=== PATIENT | male | born 1975 | race Asian ===

== ENCOUNTER 2024-10-21 07:31 | Emergency (ER) | payer OTHER ==
[~2024-10-21] VITALS: Ht 157.5 cm; Wt 60.3 kg
--- NOTE | 2024-10-21 07:36 | Physician Documentation ---
History of Present Illness ~ General Stated Complaint: BLURRY VISION VOMITING AFIB Time Seen by MD: 07:35 Source: patient Mode of Arrival: POV Exam Limitations: no limitations History of Present Illness Initial Comments Chief Complaint: Nausea and vomiting Caveat: None Independent Historians: Significant other History of Present Illness: Patient is a 49-year-old man comes in complaining of nausea and vomiting that began Thursday. That is four days ago. Patient denies any abdominal pain. Patient denies any diarrhea. Patient denies any fever body aches. Patient also developed a headache Thursday associated with the nausea and vomiting. Headache is 8/10 and is in the frontal top of his head. Patient denies any neck pain. Patient denies any other associated symptoms. Patient has intermittent chest pain that is not unusual for him he states secondary to his AFib. Patient has who has intermittent shortness of breath. Review of systems: All systems were reviewed and are negative except for what is indicated in the history of present illness. Past Medical History: Atrial fibrillation, hypertension Past Surgical History: Cardiac ablation March 2024 in [place] Social History: Alcohol use, two glasses of wine daily, no tobacco use, no other drug use Medications: Reviewed as documented Nursing Notes Allergies: Reviewed as documented in Nursing Notes Medication Reconciliation Allergies: Coded Allergies: acetaminophen (Unverified Allergy, Mild, hives, 10/21/24) hydrocodone (Unverified Allergy, Mild, hives, 10/21/24) Scheduled Apixaban (Eliquis), 1 TAB PO BID, (Reported) Atorvastatin Calcium (Atorvastatin Calcium), 1 TAB PO DAILY, (Reported) Diltiazem HCl (Diltiazem 24Hr Cd), 1 CAP PO DAILY, (Reported) Losartan Potassium (Losartan Potassium), 1 TAB PO DAILY, (Reported) Metoprolol Succinate (Metoprolol Succinate), 1 TAB PO DAILY, (Reported) Review of Systems All Other Systems at this time: Reviewed and Negative ROS Patient denies any other acute symptoms other than above. All other systems are negative Physical Exam Physical Exam Pulse Oximetry Reflects: adequate oxygenation Physical Exam General Appearance: MILD DISTRESS HEENT: Normal OP, moist oral mucosa, PERRL, EOMI Neck: supple, normal ROM, trachea midline Pulmonary: No respiratory distress, CTA, BS equal Cardiac: RRR, no murmur, rub or gallop, GI: nondistended, soft, nontender, normal bowel sounds, no guarding, no rebound Extremities: normal ROM, no swelling, non-tender Skin: intact, dry, warm, no rashes Neuro: AAOx3, speech is clear, no focal motor weakness Psych: normal affect, good eye contact, no apparent hallucination, normal speech Progress Results/Orders Results/Orders Orders - DEVONTE MANZANO MD Electrocardiogram (10/21/24 07:34) [place] (10/21/24 07:58) Monitor (10/21/24 07:58) Ct Head (10/21/24 08:34) Chest,Single View (10/21/24 07:58) Cta Neck/Head (10/21/24 10:34) [place] Prov.Neuro Consult (10/21/24 10:34) Completed Orders - DEVONTE MANZANO MD Electrocardiogram (10/21/24 07:34) Cbc/Diff (10/21/24 07:37) Lipase (10/21/24 07:37) Urinalysis, Cult If Indicated (10/21/24 07:37) BMP (10/21/24 07:37) CMP (10/21/24 07:37) PTT (10/21/24 07:37) Pt Inr (10/21/24 07:37) Hs Troponin I W Calculations (10/21/24 07:58) Hs Troponin I W Calculations (10/21/24 09:58) Hs Troponin I W Calculations (10/21/24 10:58) Ct Head (10/21/24 08:34) Chest,Single View (10/21/24 07:58) Normal Saline 1000ml (Sodium Chloride 10 (10/21/24 08:00) Ondansetron Inj. (Zofran 4mg/2ml Vial) (10/21/24 08:05) Cta Neck/Head (10/21/24 10:34) Iohexol 350mg/Ml 100ml (Omnipaque 350mg/ (10/21/24 10:41) Meclizine Tablets (Antivert Tablet) (10/21/24 13:10) Prochlorperazine Inj (Compazine Inj) (10/21/24 13:10) Diphenhydramine Inj (Benadryl Inj.) (10/21/24 13:10) Medications Received in ER Medications (Trade) Dose Ordered Sig/Cindy Route PRN Reason Start Time Stop Time Status Last Admin Dose Admin (sodium chloride 1000ml IV soln) 1,000 ml ONCE ONCE IVB 10/21/24 08:00 10/21/24 08:02 DC 10/21/24 08:52 1,000 ML (Zofran 4mg/2ml vial) 4 mg ONCE ONCE IV 10/21/24 08:05 10/21/24 08:06 DC 10/21/24 08:52 4 MG (Antivert tablet) 25 mg ONCE ONCE PO 10/21/24 13:10 10/21/24 13:14 DC 10/21/24 13:19 25 MG (Compazine inj) 10 mg ONCE ONCE IV 10/21/24 13:10 10/21/24 13:14 DC 10/21/24 13:20 10 MG (Benadryl inj.) 50 mg ONCE ONCE IV 10/21/24 13:10 10/21/24 13:11 DC 10/21/24 13:19 50 MG Vital Signs 10/21/24 10/21/24 10/21/24 10/21/24 07:41 07:53 07:59 09:00 Temp 98.2 Pulse 68 64 67 Resp 16 14 14 14 B/P (MAP) 190/105 197/102 (133) 150/122 (131) Pulse Ox 100 99 100 O2 Flow Rate 0 0 10/21/24 10/21/24 10/21/24 10/21/24 10:00 11:06 12:23 13:13 Temp 98.2 Pulse 65 32 67 59 Resp 17 17 12 12 B/P (MAP) 161/96 (117) 175/109 (131) 155/104 (121) 140/88 (105) Pulse Ox 100 100 100 98 O2 Flow Rate 0 Laboratory Tests Test 10/21/24 07:43 10/21/24 08:02 10/21/24 09:45 10/21/24 11:07 Urine Specimen Description Cln catch midstream Urine Color Yellow Urine Clarity Clear Urine pH 6.0 Urine Specific [place] 1.020 Urine Protein Negative Urine Glucose (UA) Negative Urine Ketones 15 H Urine Occult Blood Negative Urine Nitrite Negative Urine Bilirubin Negative Urine Urobilinogen 0.2 Urine Leukocyte Esterase Negative Urine Culture Indicated Not ind Volume Urine Centrifuged 10 ml Urine Comment White Blood Count 8.6 Red Blood Count 5.43 Hemoglobin 15.2 Hematocrit 45.9 Mean Corpuscular Volume 84.6 Mean Corpuscular Hemoglobin 28.0 Mean Corpuscular Hemoglobin Concent 33.1 Red Cell Distribution Width 13.7 Platelet Count 259 Mean Platelet Volume 8.2 Neutrophils (%) (Auto) 70.8 Lymphocytes (%) (Auto) 18.4 L Monocytes (%) (Auto) 9.3 Eosinophils (%) (Auto) 1.0 Basophils (%) (Auto) 0.5 Neutrophils # (Auto) 6.1 Lymphocytes # (Auto) 1.6 Monocytes # (Auto) 0.8 Eosinophils # (Auto) 0.1 Basophils # (Auto) 0.0 CBC Comment Prothrombin Time 10.8 INR International Normalized Ratio 1.1 Activated Partial Thromboplast Time 29 Coagulation Comments Sodium Level 141 Potassium Level 3.9 Chloride Level 103 Carbon Dioxide Level 28.5 Anion Gap 10 Blood Urea Nitrogen 13 Creatinine 0.80 Estimated GFR/1.73 m2 > 90 BUN/Creatinine Ratio 16.3 Glucose Level 100 Calcium Level 9.1 Total Bilirubin 0.8 Aspartate Amino Transf (AST/SGOT) 44 H Alanine Aminotransferase (ALT/SGPT) 61 Alkaline Phosphatase 78 Troponin I High Sensitivity 6 7 7 Total Protein 7.8 Albumin 4.3 Globulin 3.5 Albumin/Globulin Ratio 1.2 Lipase 17 Chemistry Comments Troponin I High Sens Percent Delta 16 0 Troponin I Hi Sens Absolute Change 1 0 Medical Decision Making Findings Differential diagnosis includes but is not limited to: SUBARACHNOID HEMORRHAGE, MENINGITIS, VIRAL SYNDROME, DEHYDRATION, ELECTROLYTE ABNORMALITIES, HYPOGLYCEMIA, CVA EKG independent interpretation: Performed at 7:37 a.m.. Normal sinus rhythm, heart rate 66, normal axis, normal ST segments Chest x-ray, single view, indication: Dizziness Independent interpretation: Lungs are clear, normal mediastinum, normal cardiac silhouette, normal bones and soft tissues. No acute cardiopulmonary process CT head without IV contrast, indication: Evaluation for hemorrhage/stroke Impression: No CT evidence of acute intracranial abnormality. CTA head and neck, indication: Evaluation for possible posterior stroke Impression: 1. Mild irregularity of the left supraclinoid internal carotid artery, a small aneurysm is not entirely excluded. Consider follow-up MRA of the brain. 2. No evidence of hemodynamically significant carotidz stenosis or dissection. Laboratory data independent interpretation: CBC: Unremarkable CMP: Normal Urinalysis: Normal Coags: Normal Emergency department course/medical decision-making: Patient was a 49-year-old man with hypertension and AFib who was on Eliquis and presents with nausea vomiting and a headache that began four days ago. Patient's physical exam is unremarkable. He has no meningeal signs. Patient was neurologically intact. Patient ordered 1 L of normal saline and Zofran 4 mg IV. Lab work is unremarkable. Head CT is negative acute, chest x-ray negative acute. Cause for his symptoms is unclear. Further workup will be performed to evaluate further for possible posterior CVA. Patient was neurologically intact. No focal findings on neuro exam. Cause for his intractable nausea and vomiting has not been identified. He has a normal abdominal exam. Labs are essentially normal. Neuro consult has also been ordered. Case discussed with the neurologist. He is suspecting complex migraine. There is no evidence of subarachnoid hemorrhage. There was a question of possible small aneurysm of one of the small vessels however not having symptoms consiste nt with an acute subarachnoid hemorrhage. Patient was given Reglan, Benadryl and he is feeling better. Patient was stable for discharge. Results and treatment plan reviewed with the patient. Consultation/communications: Tele neurology consultation pending 1:00 p.m.: Case discussed with tele neurologist. Departure Time of Disposition: 15:19 Disposition: 01 HOME / SELF CARE / HOMELESS Impression: Primary Impression: Complex migraine Condition: Improved Discharge Instructions: Migraine Headache, [id number] Additional Instructions: YOUR THOUGHT TO POSSIBLY HAVE A COMPLEX MIGRAINE. THERE WAS NO EVIDENCE OF ACUTE STROKE. RETURN TO THE EMERGENCY DEPARTMENT IF YOUR SYMPTOMS WORSEN. CTA OF THE HEAD SHOWED A Mild irregularity of the left supraclinoid internal carotid artery, a small aneurysm is not entirely excluded. RECOMMEND YOU FOLLOW UP WITH YOUR PRIMARY CARE DOCTOR FOR OUTPATIENT MRA OF THE BRAIN TO RULE OUT A SMALL ANEURYSM. Departure Forms: Excuse form Work or School Excused From: Work Excuse beginning now through the following date: October 23, 2024 May Return but still avoid physical Activity from now until: October 23, 2024 Education Educated: Patient, Family Educated regarding: diagnosis, treatment Signature Scribe Signature: No scribe Attestation: No scribe DEVONTE MANZANO MD October 21, 2024 07:36
--- NOTE | 2024-10-21 07:39 | ELECTROCARDIOGRAPH REPORT ---
[facility] Test Date: 2024-10-21 Test Time: 07:37:26 Pat Name: FRANCES HOLDER Department: [facility] Patient ID: [id number] Room: Gender: M [employer]: : 1975 Requested By: DEVONTE MANZANO Order Number: [id number] Reading MD: Dr. Madan Beltran Measurements Intervals [place] Rate: 66 P: 99 DC: 95 QRS: 73 QRSD: 88 T: 19 QT: 403 QTc: 423 Interpretive Statements Sinus rhythm Short DC interval Electronically Signed On 10-21-2024 11:26:[address] Madan Beltran Please click the below link to view image of tracing.
[2024-10-21] MEDS ORDERED: ATOR40TA72 PO (08:02)
[2024-10-21] MEDS ORDERED: DILT-88 PO (08:02)
[2024-10-21] MEDS ORDERED: LOSA50TA64 PO (08:02)
[2024-10-21] MEDS ORDERED: APIX5TAB3 PO (08:02)
[2024-10-21] MEDS ORDERED: METO-384 PO (08:02)
[2024-10-21 08:09] LABS: BILIRUBIN,URINE NEGATIVE (Neg); CLARITY,URINE CLEAR (Clear); COLOR,URINE YELLOW (Yellow); GLUCOSE, URINE NEGATIVE (Neg); KETONES,URINE 15 mg/dl (Neg); LEUKOCYTE ESTERASE ,URINE NEGATIVE (Neg); NITRITES, URINE NEGATIVE (Neg); OCCULT BLOOD,URINE NEGATIVE (Neg); PROTEIN,URINE NEGATIVE (Neg); UROBILINOGEN,URINE 0.2 E.U/dL (0.2-1.0)
[2024-10-21 08:18] LABS: BASOPHILS % (AUTO) 0.5 % (0-1); EOSINOPHILS # (AUTO) 0.1 X10'3 (0-0.9); HEMATOCRIT 45.9 % (42.0-52.0); HEMOGLOBIN 15.2 g/dl (14.0-17.9); LYMPHOCYTES # (AUTO) 1.6 X10'3 (1.1-4.8); LYMPHOCYTES % (AUTO) 18.4 % (21-51); MEAN CORPUSCULAR HGB CONC 33.1 g/dL (33.0-36.5); MEAN CORPUSCULAR VOLUME 84.6 FL (78-98); MEAN PLATELET VOLUME 8.2 FL (7.4-10.4); MONOCYTES # (AUTO) 0.8 X10'3 (0-0.9); MONOCYTES % (AUTO) 9.3 % (2-12); NEUTROPHILS # (AUTO) 6.1 X10'3 (1.8-7.7); NEUTROPHILS % (AUTO) 70.8 % (42-75); PLATELET COUNT 259 X10'3 (140-440); RED BLOOD COUNT 5.43 X10'6 (4.70-6.10); RED CELL DISTRIBUTION WIDTH 13.7 % (11.5-14.5); WHITE BLOOD COUNT 8.6 X10'3 (4.5-11.0)
[2024-10-21 08:34] LABS: UA COLLECTION TYPE CLN CATCH MIDSTREAM
[2024-10-21 08:36] LABS: APTT 29 SECONDS (22-32); INR 1.1 INR; PROTHROMBIN TIME 10.8 SECONDS (9.0-12.0)
[2024-10-21 08:37] LABS: ALANINE AMINOTRANSFERASE 61 U/L (12-78); ALBUMIN 4.3 G/DL (3.4-5.0); ALBUMIN/GLOBULIN RATIO 1.2 (1.1-1.5); ALKALINE PHOSPHATASE 78 IU/L (46-116); ANION GAP 10 (8-16); ASPARTATE AMINO TRANSFERASE 44 U/L (10-37); BILIRUBIN,TOTAL 0.8 MG/DL (0.1-1.0); BLOOD UREA NITROGEN 13 MG/DL (7-18); BUN/CREATININE RATIO 16.3 (10.0-20.0); CALCIUM 9.1 MG/DL (8.5-10.1); CHLORIDE 103 MMOL/L (99-107); GLUCOSE 100 MG/DL (70-104); LIPASE 17 U/L (16-77); POTASSIUM 3.9 MMOL/L (3.5-5.1); SODIUM 141 MMOL/L (135-145); TOTAL CARBON DIOXIDE 28.5 MMOL/L (24-32); TOTAL PROTEIN 7.8 G/DL (6.4-8.2); eCRCL 88 ML/MIN; eGFR > 90 ML/MIN
--- NOTE | 2024-10-21 08:39 | RADIOLOGY REPORT ---
CHEST RADIOGRAPH Indication: CP Technique: Single frontal view of the chest was obtained Comparison: None FINDINGS: Lines and Tubes: None Lungs: No focal consolidation. Pleura: No effusion. No pneumothorax. Cardiomediastinal contours: Unremarkable Bones: No acute osseous abnormality. IMPRESSION: No acute cardiopulmonary disease.
[2024-10-21] MEDS: normal saline 1000ML IV soln IVB ONE (08:52)
[2024-10-21] MEDS: ondansetron/PF 4mg/2ml inj IV ONE (08:52)
--- NOTE | 2024-10-21 09:11 | RADIOLOGY REPORT ---
CLINICAL INFORMATION: 49 years old, Male; headache, hypertensive, on eliquis. TECHNIQUE: Axial imaging was obtained through the brain without contrast. Coronal and sagittal reform atted images were obtained, reviewed, and stored. Images were reviewed in brain and bone windows. Al l CT scans at this medical facility are performed using dose modulation techniques as appropriate to a performed exam including the following: Automated exposure control was utilized; adjustment of the MA and/or KV according to patient size; and use of iterative reconstruction technique. CTDIvol = 6.46 mGy DLP = 1130.99 mGy-cm COMPARISON: None FINDINGS: There is no acute intracranial hemorrhage. No mass effect or midline shift. The ventricles and sulci are within normal limits in size for age. Basal cisterns are patent. The calvarium is unre markable. Paranasal sinuses and mastoid air cells are clear. IMPRESSION: No CT evidence of acute intracranial abnormality.
[2024-10-21] MEDS ORDERED: iohexol 350MG/ML 100ml bottle IV ONE (10:41)
--- NOTE | 2024-10-21 11:36 | RADIOLOGY REPORT ---
INDICATION: dizziness, headache COMPARISON: None TECHNIQUE: CTA head with intravenous contrast. CTA neck with intravenous contrast. 3D image postproce ssing was performed on a dedicated workstation and images were used for interpretation and reporting. Radiation Dose Information: CT Dose: CTDI volume is 52 mGy. Dose-length product is 543 mGy*cm CONTRAST: Type of contrast: Omni 350 Contrast injected: 100 ml FINDINGS: CTA head: There is normal enhancement of the visualized distal internal carotid, anterior and middle cerebral a rteries. There is mild irregularity of the left supraclinoid internal carotid artery, a small aneurys m is not entirely excluded. There is a normal anterior communicating artery complex. Left V4 segment is diminutive and terminates in the left PICA. The vertebral, basilar, cerebellar and posterior cereb ral arteries are within normal limits. The early parenchymal enhancement is grossly unremarkable. The visualized intracranial venous structures are grossly unremarkable. CTA neck: The visualized thoracic aortic arch and proximal great vessels are unremarkable. The left common, internal and external carotid arteries are within normal limits. The right common, internal and external carotid arteries are within normal limits. The cervical segments of the right and left vertebral arteries are within normal limits. The limited visualized lung apices are clear. The surrounding soft tissues and osseous structures are otherwise unremarkable. IMPRESSION: 1. Mild irregularity of the left supraclinoid internal carotid artery, a small aneurysm is not entire ly excluded. Consider follow-up MRA of the brain. 2. No evidence of hemodynamically significant carotidz stenosis or dissection. All CT scans at this medical facility are performed using dose modulation techniques as appropriate t o a performed exam including the following: Automated exposure control was utilized; adjustment of th e MA and/or KV according to patient size; and use of iterative reconstruction technique. HS:Y
--- NOTE | 2024-10-21 13:04 | [facility] CONSULT REPORT ---
[facility] Procedure Note [facility] Procedure Note Consult [facility] Note # Demographics Consult Type: General Neurology Patient Location: Emergency Room First Name: FRANCES Last Name: GALLO Date of : 1975 Age: 49 Gender: Male Facility: [facility] Time of Initial Page (): 10/21/2024 11:45 Time of Return Call (): 10/21/2024 11:45 # HPI Chief Complaint: - dizziness - weakness (focal) - headache History: 49M with HTN, afib on apixaban presents with nausea/vomiting/headache/dizziness. LKWT 4 days prior. Symptoms have been persistent since then. Normal neuro exam on ED evaluation. Headache pressure like in the front of the head, associated with photophobia. # Scores Time of exam and NIHSS (): 10/21/2024 12:59 Level of Consciousness 1a: [0] = Alert; keenly responsive LOC Questions 1b: [0] = Answers both questions correctly LOC Commands 1c: [0] = Performs both tasks correctly Best Gaze 2: [0] = Normal Visual 3: [0] = No visual loss Facial Palsy 4: [0] = Normal symmetrical movements Motor Arm Left 5a: [0] = No drift Motor Arm Right 5b: [0] = No drift Motor Leg Left 6a: [0] = No drift Motor Leg Right 6b: [0] = No drift Limb Ataxia 7: [0] = Absent Sensory 8: [0] = Normal Best Language 9: [0] = No aphasia Dysarthria 10: [0] = Normal Extinction and Inattention 11: [0] = No abnormality NIHSS Total: 0 # Data Head CT: - per radiologist read - no bleed - preliminarily reviewed by me, please refer to radiology read for official reading CTA Head: - no large vessel occlusion - per radiologist read MIld irregularity in the left supraclinoid ICA, possibly a small aneurysm CTA Neck: - patent vessels - per radiologist read CT Perfusion: - WNL # Assessment Impression: - Migraine (Complex) Vertigo # Plan Thrombolytic/Intervention: NOT IV Thrombolysis or IA Intervention candidate Thrombolytic Exclusion: > 4.5 hours Intraarterial Exclusion: - no large vessel occlusion (LVO) Thrombolytic/Intraarterial Exclusion: - IV thrombolytic and IA intervention considered but not recommended as this patient's symptoms are not clinically consistent with an assumed diagnosis of stroke Diagnostic Test: Lauryn Hallpike maneuvers Medication: - migraine cocktail: Toradol 30 mg IV + Benadryl 25 mg IV + antiemetic IV meclizine for vertigo Other: - If patient has any neurological deterioration please call me back immediately - I have discussed my recommendations with the referring provider - If CTA negative and symptoms resolved may dispo; otherwise would admit for MRI and symptom control Additional Recommendations: OK for discharge home if symptoms controlled with above and walking comfortably Disposition: observation # Logistics Attestation of consult completion: The patient is located at: [facility]. Facility staff participated in the visit. I performed this telemedicine visit from my offsite office utilizing interactive 2 way audio and visual telecommunication technology. Consent: Verbal consent was obtained from the patient and/or family for this encounter. Total time spent in telemedicine encounter: I spent 10 minutes reviewing clinical data and/or imaging, obtaining history, examining the patient, communicating with the onsite care team, and in preparation of this report. Electronically signed at 10/21/2024 13:03 ([place] Time) by Isaiah Delarosa MD Neuro Consult Order placed for: Yes ISAIAH DELAROSA MD October 21, 2024 13:04
[2024-10-21] MEDS: diphenhydrAMINE 50 mg/ml inj IV ONE (13:19)
[2024-10-21] MEDS: meclizine 12.5mg tablet PO ONE (13:19)
[2024-10-21] MEDS: proCHLORperazine 10 MG/2 ml inj IV ONE (13:20)
[2024-10-21 15:39] VITALS: BP 140/88; PULSE 71; RESP 20; TEMP 98.2; O2SAT 97
== END 2024-10-21 15:38 | disposition home or self-care (01) ==
LOC: ER 07:32
DX: G43.109 Migraine with aura, not intractable, without status migrainosus (principal); I10 Essential (primary) hypertension; I48.91 Unspecified atrial fibrillation; Z88.5 Allergy status to narcotic agent; Z88.6 Allergy status to analgesic agent; Z79.899 Other long term (current) drug therapy
CPT/HCPCS: 36415; 70450; 70496; 70498; 71045; 80053; 81003; 83690; 84484; 85025; 85610; 85730; 93005; 96361; 96374; 96375; 99285; J0780; J1200; J2405; J7030; J8597; Q9967